=== PATIENT | female | born 1990 | race Two or more races ===

== ENCOUNTER 2022-05-01 13:16 | Emergency (ER) | payer MEDICAID, OTHER ==
[~2022-05-01] VITALS: Ht 144.8 cm; Wt 80.8 kg
[2022-05-01 13:45] VITALS: BP 116/52
[2022-05-01 15:16] LABS: Urine Bacteria MANY /hpf (None Seen); Urine Blood Negative /uL (Negative); Urine Hyaline Cast FEW /lpf (0 - 2); Urine Mucus FEW (None Seen); Urine WBC 13 /hpf (0 - 5)
[2022-05-01 15:23] LABS: Albumin 3.3 g/dL (3.4-5.0); BUN/Creatinine Ratio 11.8; Calcium 8.6 mg/dL (8.5-10.1); Potassium 3.9 mmol/L (3.5-5.1)
[2022-05-01 15:26] LABS: Bilirubin, Total 0.2 mg/dL (0.2-1.0); Total Protein 7.8 g/dL (6.4-8.2)
[2022-05-01 15:33] LABS: Basophils # (auto) 0 10 ^3/uL (0-0.2); Basophils % (auto) 0.5 % (0.0-2.0); Eosinophils # (auto) 0.1 10 ^3/uL (0-0.8); Eosinophils % (auto) 1.2 % (0.0-7.0); Hematocrit 37.9 % (36.0-46.0); Hemoglobin 12.6 g/dL (12.2-16.2); Lymphocytes # (auto) 2.1 10 ^3/uL (0.4-5.4); Lymphocytes % (auto) 26.1 % (10.0-50.0); Mean Corpuscular Hemoglobin 28.4 pg (28.0-32.0); Mean Corpuscular Hgb Conc. 33.3 g/dL (32.0-36.0); Mean Corpuscular Volume 85.3 fL (80.0-100.0); Monocytes # (auto) 0.4 10 ^3/uL (0-1.3); Monocytes % (auto) 5.2 % (0.0-12.0); Neutrophils # (auto) 5.3 10 ^3/uL (1.6-8.6); Nucleated Red Blood Cells % 0.1 %; Red Blood Cells 4.44 10^6/uL (4.0-5.20); Red Cell Distribution Width 13.4 % (11.8-14.3)
[2022-05-01] MEDS ORDERED: ONDA-144 PO (17:21)
[2022-05-01] MEDS ORDERED: CEPH-510 PO (17:21)
== END 2022-05-01 18:14 | disposition home or self-care (01) ==
LOC: ER 13:16
DX: O21.8 Other vomiting complicating pregnancy (principal); O23.41 Unspecified infection of urinary tract in pregnancy, first trimester; N39.0 Urinary tract infection, site not specified; R10.2 Pelvic and perineal pain; Z3A.13 13 weeks gestation of pregnancy
CPT/HCPCS: 36415; 80053; 81001; 84702; 85025

== ENCOUNTER 2022-06-30 12:57 | Observation (INO) | payer MEDICAID ==
[~2022-06-30] VITALS: Ht 154.9 cm; Wt 85.7 kg
[~2022-06-30 12:57] MED LIST: CEPH-510 PO; ONDA-144 PO
[2022-06-30] MEDS ORDERED: ONDANSETRON HCL 4 MG/2 ML VIAL IV ONE (13:45)
[2022-06-30] MEDS ORDERED: LACTATED RINGER'S 1,000 ML IV ONE ×2 (13:45→15:30)
== END 2022-06-30 17:05 | disposition home or self-care (01) ==
LOC: UNDOADMOB 12:57 → LDRP 12:57
PROVIDERS: ADMIT Obstetrics & Gynecology; ATTEND Obstetrics & Gynecology
DX: O21.2 Late vomiting of pregnancy (principal); Z20.822 Contact with and (suspected) exposure to COVID-19; O26.892 Other specified pregnancy related conditions, second trimester; R10.9 Unspecified abdominal pain; R19.7 Diarrhea, unspecified; R51.9 Headache, unspecified; O99.891 Other specified diseases and conditions complicating pregnancy; M54.9 Dorsalgia, unspecified; Z3A.22 22 weeks gestation of pregnancy; Z91.040 Latex allergy status
CPT/HCPCS: 36415; 59025; 81002; 87426; 94760; 96361; 96374; G0378; J2405; 96360

== ENCOUNTER 2022-09-08 13:40 | Observation (INO) | payer MEDICAID ==
[~2022-09-08] VITALS: Ht 154.9 cm; Wt 86.6 kg
[2022-09-08] MEDS ORDERED: TERBUTALINE SULFATE 1 MG/ML 1ML VIAL SC SCH (14:45)
[2022-09-08] MEDS ORDERED: LACTATED RINGER'S 1,000 ML IV ONE (14:45)
[2022-09-08 15:15] LABS: Urine Bacteria FEW /hpf (None Seen); Urine Blood Negative /uL (Negative); Urine Mucus FEW (None Seen); Urine Specific Gravity 1.018 (1.001-1.035); Urine WBC 4 /hpf (0 - 5)
[2022-09-08 15:30] LABS: Alcohol, Urine < 3.0 mg/dL (0-10); Amphetamine Screen, Urine NEGATIVE (NEGATIVE); Barbiturate Scree,Urine NEGATIVE (NEGATIVE); Benzodiazephine Screen, Urine NEGATIVE (NEGATIVE); Cannabinoid Screen, Urine NEGATIVE (NEGATIVE); Cocaine Screen, Urine NEGATIVE (NEGATIVE); Opiate Scree,Urine NEGATIVE (NEGATIVE); Phencyclidine Screen, Urine NEGATIVE (NEGATIVE)
== END 2022-09-08 16:58 | disposition home or self-care (01) ==
LOC: UNDOADMOB 13:40 → LDRP 13:40
PROVIDERS: ADMIT Obstetrics & Gynecology; ATTEND Obstetrics & Gynecology
DX: O62.9 Abnormality of forces of labor, unspecified (principal); O26.893 Other specified pregnancy related conditions, third trimester; E86.0 Dehydration; N89.8 Other specified noninflammatory disorders of vagina; Z3A.32 32 weeks gestation of pregnancy; Z79.899 Other long term (current) drug therapy
CPT/HCPCS: 59025; 76815; 76818; 80307; 81001; 81002; 84112; 94760; 96360; 96361; 96372; G0378; J3105; Q0114

== ENCOUNTER 2022-09-10 12:54 | Observation (INO) | payer MEDICAID ==
[2022-09-10] MEDS ORDERED: PREN-96 PO ×2 (13:18)
== END 2022-09-10 16:46 | disposition home or self-care (01) ==
LOC: LDRP 12:54
PROVIDERS: ADMIT Obstetrics & Gynecology; ATTEND Obstetrics & Gynecology
DX: O62.9 Abnormality of forces of labor, unspecified (principal); O42.913 Preterm premature rupture of membranes, unspecified as to length of time between rupture and onset of labor, third trimester; O26.893 Other specified pregnancy related conditions, third trimester; N89.8 Other specified noninflammatory disorders of vagina; Z3A.32 32 weeks gestation of pregnancy; Z79.899 Other long term (current) drug therapy
CPT/HCPCS: 59025; 76818; 81002; 82948; G0378

== ENCOUNTER 2022-10-11 00:40 | Observation (INO) | payer MEDICAID ==
[~2022-10-11] VITALS: Ht 154.9 cm; Wt 83.0 kg
[~2022-10-11 00:40] MED LIST changes: +NIF10C PO; +PREN-96 PO
== END 2022-10-11 02:08 | disposition home or self-care (01) ==
LOC: LDRP 00:40
PROVIDERS: ADMIT Obstetrics & Gynecology; ATTEND Obstetrics & Gynecology
DX: O62.9 Abnormality of forces of labor, unspecified (principal); Z3A.36 36 weeks gestation of pregnancy
CPT/HCPCS: 59025; 81002; 94760

== ENCOUNTER 2022-10-14 21:11 | Observation (INO) | payer MEDICAID | END 2022-10-14 23:06 | disposition home or self-care (01) | LOC: LDRP 21:11 | PROVIDERS: ADMIT Obstetrics & Gynecology; ATTEND Obstetrics & Gynecology | DX: O62.9 Abnormality of forces of labor, unspecified (principal); O26.893 Other specified pregnancy related conditions, third trimester; R19.7 Diarrhea, unspecified; Z3A.37 37 weeks gestation of pregnancy | CPT/HCPCS: 59025; 81002; 94760; G0378 ==

== ENCOUNTER 2022-10-17 11:20 | Observation (INO) | payer MEDICAID ==
[2022-10-18] MEDS ORDERED: FERR1TAB31 PO (03:30)
== END 2022-10-17 12:10 | disposition home or self-care (01) ==
LOC: LDRP 11:20
PROVIDERS: ADMIT Obstetrics & Gynecology; ATTEND Obstetrics & Gynecology
DX: O60.03 Preterm labor without delivery, third trimester (principal); Z3A.37 37 weeks gestation of pregnancy
CPT/HCPCS: 59025; G0378

== ENCOUNTER 2022-10-18 02:50 | Observation (INO) | payer MEDICAID ==
[2022-10-18] MEDS ORDERED: FERR1TAB31 PO (03:30)
== END 2022-10-18 04:55 | disposition home or self-care (01) ==
LOC: LDRP 02:50
PROVIDERS: ADMIT Obstetrics & Gynecology; ATTEND Obstetrics & Gynecology
DX: O60.03 Preterm labor without delivery, third trimester (principal); Z3A.37 37 weeks gestation of pregnancy
CPT/HCPCS: 59025; 81002; 94760; G0378

== ENCOUNTER 2022-10-20 19:05 | Inpatient (IN) | payer MEDICAID ==
[~2022-10-20] VITALS: Ht 154.9 cm; Wt 89.4 kg
[~2022-10-20 19:05] MED LIST changes: -NIF10C PO
[2022-10-20] MEDS ORDERED: ACETAMINOPHEN 325 MG TAB PO ONE ×2 (23:00→23:30)
[2022-10-20] MEDS ORDERED: hydrOXYzine 25 MG TAB or CAP PO ONE (23:00)
[2022-10-21] MEDS ORDERED: MINERAL OIL TOPICAL 10ml TOP PRN (00:15)
[2022-10-21] MEDS ORDERED: WITCH HAZEL-GLYCERIN PAD TOP PRN (00:30)
[2022-10-21] MEDS ORDERED: DERMOPLAST 60ML BOTTLE TOP PRN (00:30)
[2022-10-21] MEDS ORDERED: LIDOCAINE 2%HCL (LOCAL ANESTH.) INJ 20ML MDV IJ PRN (00:30)
[2022-10-21] MEDS ORDERED: BUTORPHANOL TARTRATE 2 MG/1 ML VIAL IV PRN ×2 (00:30)
[2022-10-21] MEDS ORDERED: PHISODERM TOP SOLN 240ML BTL TOP PRN (00:30)
[2022-10-21] MEDS ORDERED: LACTATED RINGER'S 1,000 ML IV SCH (00:30)
[2022-10-21] MEDS ORDERED: PROMETHAZINE HCL 25 MG/ML 1ML IV PRN (00:30)
[2022-10-21] MEDS ORDERED: PENICILLIN G POT 5MIL/D5 50ML 50 ML IV ONE (00:30)
[2022-10-21 01:28] LABS: Basophils # (auto) 0 10 ^3/uL (0-0.2); Basophils % (auto) 0.5 % (0.0-2.0); Eosinophils # (auto) 0.1 10 ^3/uL (0-0.8); Eosinophils % (auto) 0.7 % (0.0-7.0); Hematocrit 35.9 % (36.0-46.0); Hemoglobin 11.5 g/dL (12.2-16.2); Lymphocytes # (auto) 2.6 10 ^3/uL (0.4-5.4); Lymphocytes % (auto) 31.2 % (10.0-50.0); Mean Corpuscular Hemoglobin 24.3 pg (28.0-32.0); Mean Corpuscular Volume 75.9 fL (80.0-100.0); Monocytes # (auto) 0.5 10 ^3/uL (0-1.3); Monocytes % (auto) 5.8 % (0.0-12.0); Neutrophils # (auto) 5.1 10 ^3/uL (1.6-8.6); Neutrophils % (auto) 61.8 % (37.0-80.0); Red Blood Cells 4.73 10^6/uL (4.0-5.20); Red Cell Distribution Width 15.4 % (11.8-14.3); White Blood Cell 8.2 10^3/uL (4.4-10.8)
[2022-10-21] MEDS ORDERED: PROMETHAZINE HCL 25 MG/ML 1ML IM PRN (01:30)
[2022-10-21] MEDS ORDERED: fentaNYL CITRATE 100 MCG/2 ML VL IV PRN (01:30)
[2022-10-21 01:43] LABS: INR 0.91 (0.9-1.15); Partial Thromboplastin Time 25.9 SEC (24.5-34.5); Prothrombin Time 9.6 sec (9.3-11.8)
[2022-10-21 01:44] LABS: Albumin 2.8 g/dL (3.4-5.0); BUN/Creatinine Ratio 10.3 (10.0-20.0); Calcium 8.5 mg/dL (8.5-10.1); Potassium 3.6 mmol/L (3.5-5.1)
[2022-10-21 01:47] LABS: Bilirubin, Total 0.2 mg/dL (0.2-1.0); Total Protein 7.3 g/dL (6.4-8.2)
[2022-10-21] MEDS ORDERED: PROMETHAZINE HCL 25 MG/ML 1ML IM ONE (02:00)
[2022-10-21] MEDS ORDERED: LACT. RINGERS/OXYTOCIN 20UNITS 500 ML IV ONE ×2 (02:15→02:45)
[2022-10-21] MEDS ORDERED: PENICILLIN G POTASSIUM 2,500,000 UNITS in D5W 5% 50 ML IV SCH (04:30)
[2022-10-21] MEDS: IBUPROFEN 600 MG TAB PO PRN ×3 (04:58→19:34)
[2022-10-21 05:28] LABS: Alcohol, Urine < 3.0 mg/dL (0-10); Amphetamine Screen, Urine NEGATIVE (NEGATIVE); Barbiturate Scree,Urine NEGATIVE (NEGATIVE); Benzodiazephine Screen, Urine NEGATIVE (NEGATIVE); Cannabinoid Screen, Urine NEGATIVE (NEGATIVE); Cocaine Screen, Urine NEGATIVE (NEGATIVE); Opiate Scree,Urine NEGATIVE (NEGATIVE); Phencyclidine Screen, Urine NEGATIVE (NEGATIVE)
[2022-10-21 05:37] LABS: Urine Bacteria NONE SEEN /hpf (None Seen); Urine Blood 3+ /uL (Negative); Urine Clarity CLOUDY (Clear); Urine Color Red (Yellow); Urine Protein, UAD 1+ (Negative); Urine Urobilinogen Normal (Negative); Urine WBC 406 /hpf (0 - 5); Urine WBC Clumps PRESENT /hpf (None Seen); Urine pH 5.5 (5.0-8.0)
[2022-10-21] MEDS ORDERED: fentaNYL CITRATE 100 MCG/2 ML VL IV ONE (06:00)
[2022-10-21 06:34] VITALS: BP 113/69; PULSE 67; RESP 18
[2022-10-21 11:00] VITALS: BP 99/50; PULSE 84; RESP 16; TEMP 98.9; O2SAT 96
[2022-10-21 14:17] LABS: Basophils # (auto) 0 10 ^3/uL (0-0.2); Eosinophils # (auto) 0 10 ^3/uL (0-0.8)
[2022-10-21 14:19] LABS: Basophils % (auto) 0.3 % (0.0-2.0); Eosinophils % (auto) 0.4 % (0.0-7.0); Hematocrit 28.1 % (36.0-46.0); Lymphocytes # (auto) 1.9 10 ^3/uL (0.4-5.4); Mean Corpuscular Hemoglobin 24.6 pg (28.0-32.0); Mean Corpuscular Hgb Conc. 32.2 g/dL (32.0-36.0); Mean Corpuscular Volume 76.3 fL (80.0-100.0); Monocytes # (auto) 0.6 10 ^3/uL (0-1.3); Monocytes % (auto) 6.3 % (0.0-12.0); Neutrophils # (auto) 6.9 10 ^3/uL (1.6-8.6); Nucleated Red Blood Cells % 0.1 %; Red Blood Cells 3.68 10^6/uL (4.0-5.20); Red Cell Distribution Width 15.7 % (11.8-14.3); White Blood Cell 9.4 10^3/uL (4.4-10.8)
[2022-10-21 15:19] VITALS: BP 119/69; PULSE 59; RESP 16; TEMP 98.7; O2SAT 97
[2022-10-21] MEDS: ACETAMINOPHEN 325 MG TAB PO PRN ×2 (15:28→23:20)
[2022-10-21] MEDS ORDERED: IBU600T PO (18:56)
[2022-10-21] MEDS ORDERED: ACET-1882 PO (18:56)
[2022-10-21] MEDS ORDERED: PREN-96 PO (18:56)
[2022-10-21] MEDS ORDERED: CEPH250C PO (18:56)
[2022-10-21] MEDS ORDERED: ASCO500T11 PO (18:59)
[2022-10-21] MEDS ORDERED: CARB1TAB65 PO (18:59)
[2022-10-21 19:20] VITALS: BP 109/61; PULSE 84; RESP 17; TEMP 98; O2SAT 97
[2022-10-21] MEDS ORDERED: DOCU-94 PO (19:59)
[2022-10-21 23:07] VITALS: BP 104/59; PULSE 76; RESP 17; TEMP 97.9; O2SAT 97
[2022-10-22] MEDS: IBUPROFEN 600 MG TAB PO PRN ×3 (02:22→20:18)
[2022-10-22 02:30] VITALS: BP 111/64; PULSE 68; RESP 17; TEMP 98; O2SAT 98
[2022-10-22 07:07] LABS: RPR Non Reactive (Non Reactive)
[2022-10-22 11:15] VITALS: BP 117/72; PULSE 73; RESP 16; TEMP 97.7; O2SAT 97
[2022-10-22 15:15] VITALS: BP 103/56; PULSE 73; RESP 16; TEMP 97.7; O2SAT 97
[2022-10-22] MEDS: ACETAMINOPHEN 325 MG TAB PO PRN ×2 (17:35→22:47)
[2022-10-22 18:50] VITALS: BP 106/62; PULSE 70; RESP 17; TEMP 97.9; O2SAT 98
[2022-10-22 22:30] VITALS: BP 112/68; PULSE 67; RESP 17; TEMP 97.9; O2SAT 97
[2022-10-23 03:25] VITALS: BP 116/67; PULSE 70; RESP 17; TEMP 97.8; O2SAT 98
[2022-10-23] MEDS: IBUPROFEN 600 MG TAB PO PRN (04:27)
[2022-10-23 06:44] VITALS: BP 103/61; PULSE 74; RESP 16; TEMP 98.1; O2SAT 98
[2022-10-23] MEDS: ACETAMINOPHEN 325 MG TAB PO PRN (06:52)
[2022-10-23 11:23] VITALS: BP_SYST 103; BP_SYST 107; BP_DIAS 61; BP_DIAS 68; PULSE 69; PULSE 76; RESP 18; TEMP 98.3; TEMP 98.8; O2SAT 97; O2SAT 98
[2022-10-24 20:06] LABS: Treponema pallidum Ab (FTA-Ab) Non Reactive (Non Reactive)
== END 2022-10-23 11:23 | disposition home or self-care (01) | DRG 560 ==
LOC: LDRP 19:05 → OBSVTOIN 10-21 00:22 → LDRP 10-21 11:46
PROVIDERS: ADMIT Obstetrics & Gynecology; ATTEND Obstetrics & Gynecology
PROC: 10E0XZZ Delivery of Products of Conception, External Approach (ICD-10-PCS; principal; 2022-10-21)
DX: O60.14X0 Preterm labor third trimester with preterm delivery third trimester, not applicable or unspecified (principal); Z37.0 Single live birth; D62 Acute posthemorrhagic anemia; O69.1XX0 Labor and delivery complicated by cord around neck, with compression, not applicable or unspecified; Z3A.38 38 weeks gestation of pregnancy; Z90.49 Acquired absence of other specified parts of digestive tract; O90.81 Anemia of the puerperium
CPT/HCPCS: 36415; 59025; 59409; 80053; 80307; 81001; 81002; 85025; 85610; 85730; 86592; 86850; 86900; 86901; 94760; 96360; 96361; 96365; 96366; 96372; 96374; G0378; J2540; J2590; J7060

== ENCOUNTER 2023-05-13 10:55 | Emergency (ER) | payer MEDICAID ==
[~2023-05-13] VITALS: Ht 154.9 cm; Wt 79.8 kg
[~2023-05-13 10:55] MED LIST changes: +ACET-1882 PO; +ASCO500T11 PO; +CARB1TAB65 PO; -CEPH-510 PO; +CEPH250C PO; +DOCU-94 PO; +IBU600T PO; -ONDA-144 PO
[2023-05-13 11:56] LABS: Urine Bacteria NONE SEEN /hpf (None Seen); Urine Blood 3+ /uL (Negative); Urine Clarity CLOUDY (Clear); Urine Color Red (Yellow); Urine Mucus FEW (None Seen); Urine Protein, UAD 2+ (Negative); Urine Urobilinogen Normal (Negative); Urine WBC 270 /hpf (0 - 5); Urine pH 5.5 (5.0-8.0)
[2023-05-13 11:57] LABS: Urine Specific Gravity 1.032 (1.001-1.035)
[2023-05-13 12:20] LABS: Basophils # (auto) 0 10 ^3/uL (0-0.2); Eosinophils # (auto) 0.1 10 ^3/uL (0-0.8); Hemoglobin 9.8 g/dL (12.2-16.2); Lymphocytes # (auto) 1.8 10 ^3/uL (0.4-5.4); Neutrophils # (auto) 4.5 10 ^3/uL (1.6-8.6); Red Cell Distribution Width 14.5 % (11.8-14.3); White Blood Cell 6.8 10^3/uL (4.4-10.8)
[2023-05-13 12:22] LABS: Basophils % (auto) 0.5 % (0.0-2.0); Eosinophils % (auto) 1.2 % (0.0-7.0); Hematocrit 30.6 % (36.0-46.0); Lymphocytes % (auto) 26.9 % (10.0-50.0); Mean Corpuscular Hemoglobin 23.9 pg (28.0-32.0); Mean Corpuscular Volume 74.7 fL (80.0-100.0); Monocytes # (auto) 0.4 10 ^3/uL (0-1.3); Monocytes % (auto) 5.5 % (0.0-12.0); Neutrophils % (auto) 65.9 % (37.0-80.0)
[2023-05-13] MEDS ORDERED: MEDR5TAB28 PO (13:03)
[2023-05-13 13:35] VITALS: BP 110/60; PULSE 86; RESP 19; TEMP 98.5; O2SAT 100
== END 2023-05-13 13:41 | disposition home or self-care (01) ==
LOC: ER 10:55
DX: N93.8 Other specified abnormal uterine and vaginal bleeding (principal); R10.2 Pelvic and perineal pain; Z79.1 Long term (current) use of non-steroidal anti-inflammatories (NSAID); Z79.899 Other long term (current) drug therapy
CPT/HCPCS: 36415; 81001; 84702; 85025; 86900; 86901